=== PATIENT | female | born 1960 | race Caucasian/White ===

== ENCOUNTER 2020-06-11 06:25 | Day surgery (SDC) | payer BC ==
--- NOTE | 2020-06-08 16:44 | NUR ---
PATIENT'S BP NOTED TO BE ELEVATED 176/102 AND HR 59. DENIES HX HTN. INFORMED PATIENT TO RELAX WITH FEET ON FLOOR AND TO NOT TALK FOR 10 MINS. REASSESED BP WITH NO IMPROVEMENT 179/102. PATIENT STATES SHE DRINKS "A LOT OF CAFFEINE AND LOVES SALT." EDUCATION PROVIDED ON REDUCING SODIUM AND CAFFEINE INTAKE. ENCOURGED TO REDUCE STRESSORS. PATIENT RECEPTIVE TO EDUCATION AND AGREEABLE. PATIENT REPORTS SHE DOESN'T WANT TO TAKE MEDICATIONS AND IS WORRIED ABOUT FUTURE STROKE OR HEART ATTACK. REINFORCED EDUCATION AND TO F/U WITH PCP FOR ONGOING ISSUES. PATIENT AGREEABLE TO CUT OUT SODIUM AND CAFFEINE UNTIL PROCEDURE.
[~2020-06-11] VITALS: Ht 160 cm; Wt 88.0 kg
[~2020-06-11 06:25] MED LIST: ALLEGRA ALLERGY60 MG PO; CHLORTABS4 MG PO; EPIN0.3P IM; ZYRTEC10 M3 PO
--- NOTE | 2020-06-11 10:33 | NUR ---
PT ALERT, ORIENTED, APPEARED SOMEWHAT ANXIOUS. PT ADMITTED SHE DID NOT SLEEP WELL LAST NIGHT. GAVE COMFORT, ENCOURAGEMENT AND EXPLAINED WHAT SHE COULD EX- PECT TODAY. PT SEEMED MORE CALM, EXTENDED A BLESSING, WILL FOLLOW
[2020-06-11] MEDS ORDERED: HYDROCODON-ACE1 EA10 PO (10:34)
[2020-06-11] MEDS ORDERED: CELECOXIB200 MG PO (10:34)
--- NOTE | 2020-06-11 10:59 | NUR ---
06/11/20 Debora9 Elizabeth Johnson 1037- PT ARRIVES TO PACU NONAROUSABLE TO NOXIOUS STIMULI WITH AN OPA IN PLACE. RESP EVEN AND UNLABORED. PT REQUIRING A JAW THRUST WELL TO MAINTAIN PATENT AIRWAY. OXYGEN SAT HIGH 90'S TO 100% ON 6L VIA MASK. PT'S BP LOW. GLEN RYAN CRNA AWARE. FLUIDS OPENED UP. HOB IS IN LOW SEMI FOWLERS.
--- NOTE | 2020-06-11 11:52 | NUR ---
1135: PATIENT BACK IN DAY SURGERY ROOM FROM PACU. PATIENT SLIGHTLY DROWSY. EASILY AWAKENS TO VOICE. C/O PAIN 2/10 TO RIGHT KNEE. RIGHT KNEE DRESSING CDI. ICE PACK TO RIGHT KNEE. RIGHT LEG ELEVATED ON PILLOW. CSM TO RIGHT TOES WNL. SCDs ON. IV SITE WNL. PATIENT GIVEN ICE WATER. VS CHECKED. CALL LIGHT WITHIN REACH.
--- NOTE | 2020-06-11 12:45 | NUR ---
PATIENT CALLED TO GET UP, AMBULATED INTO BATHROOM. APPEARED STEADY ON FEET. STATES " I JUST FEEL DRUNK". RATES PAIN 0/10 ON PAIN SCALE. DRESSING C/D/I. PROVIDED DISCHARGE EDUCATION, PROVIDED WHEELCHAIR RIDE TO FRONT. ANSWERED QUESTIONS AND CONCERNS.
--- NOTE | 2020-06-12 16:31 | EKG ---
[facility] [address] [facility] [place], [place] [address] Signed Normal sinus rhythm Left axis deviation Minimal voltage criteria for LVH, may be normal variant Septal infarct , age undetermined Abnormal ECG No previous ECGs available Confirmed by MARCELA BELTRAN DO ([id number]) on 06/12/2020 4:31:22 PM Electronically Signed By: MARCELA BELTRAN DO 06/12/20 1631 PATIENT NAME: NAM LOPEZ Electrocardiogram DATE OF : 60 PHYSICIAN: MARCELA BELTRAN DO REPORT #: [id number] REPORT IS CONFIDENTIAL AND NOT TO BE RELEASED WITHOUT AUTHORIZATION
--- NOTE | 2020-06-14 08:53 | OR ---
[facility] [address] [place], [place] [address] Signed DATE OF OPERATION: 06/11/2020 SURGEON: Juan Stewart MD PREOPERATIVE DIAGNOSIS: Lateral meniscus tear, right knee. POSTOPERATIVE DIAGNOSIS: Lateral meniscus tear, right knee. PROCEDURE PERFORMED: Right knee arthroscopy with partial lateral meniscectomy. PIGMENT PUSHER: JOHNY Roman. ANESTHESIA: General. BLOOD LOSS: Minimal. TOURNIQUET TIME: None. BRIEF HISTORY: Carlito is a 60-year-old female with progressive worsening pain and locking in the right knee. The MRI was consistent with a large posteromedial meniscus tear and moderate chondromalacia. DESCRIPTION OF PROCEDURE: Once consent was obtained, she was taken to the operating room. After adequate anesthesia, she was placed on the operating room table. All downside pressure points were well padded. The left leg was flexed, abducted, and externally rotated on a well-padded leg engle. The right was placed in well-padded leg engle with no tourniquet. The leg was then prepped and draped in a standard sterile fashion. Prior to the prep and drape, we did inject the portal sites with 0.25% Marcaine with epinephrine under an alcohol prep. The standard inferior lateral and superolateral portals were made. The scope was introduced in the knee. 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 Grade 2 to the femur. Medial and lateral gutters were clear with moderate osteophytes in the medial compartment. ACL was noted to be torn. The posterior cruciate was intact. Her medial meniscus was intact. She had diffuse areas of grade 2 to grade 3 chondromalacia in the medial femoral condyle primarily. The lateral femoral condyle showed grade 3 to grade 4 chondromalacia particularly in the posterior half. The posterior half of the tibia showed grade 4 chondromalacia with exposed bone. Complex tear of the lateral meniscus was noted with several unstable flaps. DESCRIPTION OF OPERATION: Standard inferomedial portal was made after localization using a spinal needle. The straight and curved biters were used to trim the meniscus tear back to stable rim and all debris was evacuated. The meniscus was smooth and feathered out anteriorly and posteriorly. The chondral flaps were then smoothed out . Once this was accomplished, the scope was withdrawn. Portals closed with 3-0 nylon. Knee was injected with 60 mg Toradol. The wounds were dressed with Adaptic, ABD, and Robert wrap. She tolerated the procedure well. All sponge, needle, and instrument counts were correct. Juan Stewart MD BA/MODL /[id number] Copies: ~ Electronically Signed By: JUAN STEWART MD 06/14/20 0853 PATIENT NAME: CARLITO LOPEZ OPERATIVE REPORT DATE OF : 60 REPORT #: [id number] PHYSICIAN: JUAN STEWART MD PCP: CHUCKY ROLLINS PAC REPORT IS CONFIDENTIAL AND NOT TO BE RELEASED WITHOUT AUTHORIZATION
== END 2020-06-11 12:45 | disposition home or self-care (01) ==
LOC: DS 06:25
PROVIDERS: Specialist
PROC: 0SBC4ZZ Excision of Right Knee Joint, Percutaneous Endoscopic Approach (ICD-10-PCS; principal; 2020-06-11 08:00)
DX: S83.271A Complex tear of lateral meniscus, current injury, right knee, initial encounter (principal); M17.11 Unilateral primary osteoarthritis, right knee; M22.41 Chondromalacia patellae, right knee; M25.761 Osteophyte, right knee; Z91.013 Allergy to seafood
CPT/HCPCS: 01400; 36415; 80053; 85025; 93005; 93010; J0690; J1100; J1790; J1885; J2001; J2250; J2405; J2550; J2704; J3475; J7121